=== PATIENT | male | born 1995 | race Caucasian/White ===

== ENCOUNTER 2019-08-26 08:37 | Emergency (ER) | payer BC ==
[~2019-08-26] VITALS: Ht 172.7 cm; Wt 85.0 kg
[2019-08-26 09:50] VITALS: BP 134/74
== END 2019-08-26 09:52 | disposition home or self-care (01) ==
LOC: ER 08:38
DX: S40.011A Contusion of right shoulder, initial encounter (principal); R42 Dizziness and giddiness; V04.99XA Pedestrian with other conveyance injured in collision with heavy transport vehicle or bus, unspecified whether traffic or nontraffic accident, initial encounter; Y93.01 Activity, walking, marching and hiking; Y92.413 State road as the place of occurrence of the external cause; Y99.9 Unspecified external cause status
CPT/HCPCS: 73030; 99283